=== PATIENT | female | born 1985 | race Hispanic/Latino ===

== ENCOUNTER 2019-04-06 09:25 | Emergency (ER) | payer SELFPAY ==
[2019-04-06 10:11] LABS: Absolute Lymphocytes (CBC) 1.7 K/uL (0.7-4.9); Basophils % 0.2 % (0-1.3); Eosinophils % 5.1 % (0-4.4); Hematocrit 31.9 % (36.0-45.0); MPV 6.7 fL (7.6-11.3); Monocytes % 5.4 % (3.3-12.3); RBC Red Blood Cell Count 3.74 M/uL (3.86-4.86)
[2019-04-06] MEDS ORDERED: MORPHINE 4 MG/ML SYR ONE (10:20)
[2019-04-06 10:48] LABS: ALT/SGPT 63 U/L (12-78); AST/SGOT 33 U/L (15-37); Alkaline Phosphatase 101 U/L (45-117); BUN Blood Urea Nitrogen 10 mg/dL (7-18); Bicarbonate 28 mmol/L (21-32); Bilirubin Direct 0.2 mg/dL (0-0.2); Bilirubin Total 0.7 mg/dL (0.2-1.0); Glucose Level 117 mg/dL (74-106); Lipase 75 U/L (73-393); Potassium 3.8 mmol/L (3.5-5.1); Protein, Total 6.9 g/dL (6.4-8.2); Sodium Level 143 mmol/L (136-145)
[2019-04-06 10:51] LABS: Blood Morphology Comment NOT SEEN (NOT SEEN); Platelet Estimate ADEQ
[2019-04-06 10:51] LABS: Urine Blood NEGATIVE (NEG); Urine Glucose NEGATIVE (NEG); Urine Protein 1+ (NEG); Urine Specific Gravity 1.025 (1.005-1.030); Urine pH 6.5 (5.0-7.0)
--- NOTE | 2019-04-06 12:09 | RAD REPORT ---
EXAM DESCRIPTION: CT - Abdomen Pelvis W Contrast - 04/06/2019 11:59 am CLINICAL HISTORY: Two day history of lower abdominal pain, dark red stool, history of recent liposuc tion procedure performed in [place], patient provided history of gastric ulcer COMPARISON: None. TECHNIQUE: Biphasic, helical CT imaging of the abdomen and pelvis was performed following 100 ml non -ionic IV contrast. Oral contrast was given. All CT scans are performed using dose optimization technique as appropriate and may include automated exposure control or mA/KV adjustment according to patient size. FINDINGS: No suspicious findings in the lung bases. Liver is borderline to mildly fatty infiltrated. No hepatomegaly or focal liver parenchymal process. Spleen and pancreas show no suspicious findings. Gallbladder and biliary tree are also without suspic ious finding. Symmetric renal function is seen with no hydronephrosis or suspicious renal mass. No pyelonephritis o r acute parenchymal process. No bladder abnormalities. No adrenal abnormality seen. Uterus and ovarie s show no suspicious findings. No dilated bowel loops or bowel wall thickening. Appendix is normal. Mild mucosal level inflammatory changes in the colon can be occult on CT imaging. No free air, free fluid or inflammatory stranding i n the peritoneal or retroperitoneal spaces. No hernia, mass or bulky lymphadenopathy. No suspicious bony findings. Patient has prominent edema and stranding changes in the subcutaneous fatty tissues around the lower chest, abdomen and pelvis. Given the liposuction procedure history, these changes are not outside of normal range. Within the subcutaneous fatty tissue there is no air or abscess identifiable. IMPRESSION: Contrast enhanced CT abdomen and pelvis showing no significant or suspicious finding in the peritoneal or retroperitoneal spaces. Significant stranding and edema change in the circumferential fatty tissues around the pelvis, abdome n and lower chest. Given the patient provided history of recent liposuction procedure, these changes would not be unexpe cted. There is no air, abscess or other finding to suspect infectious process in the fatty tissues.
--- NOTE | 2019-04-06 12:57 | ER ---
Nurse's Notes [facility] Name: Nazario Allen Age: 34 yrs Sex: Female : 1985 Arrival Date: 04/06/2019 Time: 09:26 Bed 4 Private MD: Unknown, Unknown Diagnosis: Lower abdominal pain, unspecified;Hematochezia Presentation: 04/06 09:36 Presenting complaint: Patient states: lower abdominal pain X 2 days, worse this iw morning, also having dark red blood in stool today, denies vomiting blood, had recent liposuction 2 weeks ago in [place], was told she has a gastric ulcer. Transition of care: patient was not received from another setting of care. Onset of symptoms was April 06, 2019. Risk Assessment: Do you want to hurt yourself or someone else? Patient reports no desire to harm self or others. Initial Sepsis Screen: Does the patient meet any 2 criteria? No. Patient's initial sepsis screen is negative. Does the patient have a suspected source of infection? No. Patient's initial sepsis screen is negative. Care prior to arrival: None. 09:36 Method Of Arrival: Ambulatory iw 09:36 Acuity: MARYBETH 3 iw Triage Assessment: 09:40 General: Appears in no apparent distress. comfortable, Behavior is cooperative, bp appropriate for age, anxious. Pain: Complains of pain in abdomen. EENT: No deficits noted. Neuro: Level of Consciousness is awake, alert, obeys commands, Oriented to person, place, time, situation, Appropriate for age. Cardiovascular: No deficits noted. Respiratory: No deficits noted. GI: Abdomen is non-distended. : No signs and/or symptoms were reported regarding the genitourinary system. Derm: No deficits noted. Musculoskeletal: No deficits noted. 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 - Social history:: Smoking status: Patient/guardian denies using tobacco. - Family history:: not pertinent. - Ebola Screening: : Patient negative for fever greater than or equal to 101.5 degrees Fahrenheit, and additional compatible Ebola Virus Disease symptoms Patient denies exposure to infectious person Patient denies travel to an Ebola-affected area in the 21 days before illness onset No symptoms or risks identified at this time. - Hospitalizations: : No recent hospitalization is reported. Screenin:38 Abuse screen: Denies threats or abuse. Denies injuries from another. Nutritional bp screening: No deficits noted. Tuberculosis screening: No symptoms or risk factors identified. Fall Risk None identified. Assessment: 09:38 General: SEE TRIAGE NOTE. bp 11:00 Reassessment: ALL CURRENT ORDERS COMPLETED, CT PENDING. bp 13:00 Reassessment: D/C ON HOLD FOR IVF. bp 14:54 Reassessment: IVF COMPLETED. PT D/C HOME AMBULATORY WITH FAMILY, DX WITH UNSPECIFIED bp LOWER ABDOMINAL PAIN. Vital Signs: 09:39 BP 133 / 82; Pulse 85; Resp 16; Temp 98.0; Pulse Ox 99% on R/A; Weight 68.04 kg; Height iw 5 ft. 1 in. (154.94 cm); Pain 10/10; 11:00 BP 121 / 81; Pulse 85; Resp 20; Pulse Ox 100% ; bp 12:00 BP 124 / 83; Pulse 72; Resp 23; Pulse Ox 98% ; bp 13:00 BP 72 / 56; Pulse 75; Resp 11; Pulse Ox 99% ; bp 14:00 BP 109 / 70; Pulse 71; Resp 22; Pulse Ox 98% ; bp 14:57 BP 116 / 74; Pulse 79; Resp 19; Pulse Ox 100% ; bp 09:39 Body Mass Index 28.34 (68.04 kg, 154.94 cm) ED Course: 09:26 Patient arrived in ED. ag5 09:26 Unknown, Unknown is Private Physician. ag5 09:30 Ian Herman MD is Attending Physician. rn 09:38 Triage completed. iw 09:38 Patient has correct armband on for positive identification. Bed in low position. Call bp light in reach. Side rails up X2. 09:39 Arm band placed on. iw 09:50 Derek Leal, RN is Primary Nurse. bp 10:03 Inserted saline lock: 20 gauge in left antecubital area, using aseptic technique. Blood ag collected. 10:04 Basic Metabolic Panel Sent. ag 10:04 CBC with Diff Sent. ag 10:04 Creatinine for Radiology Sent. ag 10:04 Hepatic Function Sent. ag 10:04 Lipase Sent. ag 12:00 CT Abd/Pelvis - PO and IV Contrast In Process Unspecified. EDMS 12:55 Hardy Sethi MD is Referral Physician. rn 14:53 No provider procedures requiring assistance completed. IV discontinued, intact, bp bleeding controlled, No redness/swelling at site. Pressure dressing applied. Administered Medications: 10:00 Drug: morphine 4 mg Route: IVP; Site: left antecubital; bp 10:45 Follow up: Response: Pain is decreased bp 13:33 Drug: NS 0.9% 1000 ml Route: IV; Rate: 1000 ml; Site: left antecubital; bp 14:53 Follow up: IV Status: Completed infusion; IV Intake: 1000ml bp Intake: 14:53 IV: 1000ml; Total: 1000ml. bp Outcome: 12:55 Discharge ordered by MD. rn 14:53 Discharged to home ambulatory, with family. bp 14:53 Condition: stable 14:53 Discharge instructions given to patient, Instructed on discharge instructions, follow up and referral plans. medication usage, Demonstrated understanding of instructions, follow-up care, medications, Prescriptions given X 3. 15:03 Patient left the ED. iw Signatures: Dispatcher [employer] EDMS Sunita Rodriguez, Ian Duran RN, MD MD rn Gallardo, Ana ag Peltier, Brian, RN RN bp Gaskin, Ajare ag5
--- NOTE | 2019-04-06 12:58 | EDPHYS ---
Physician Documentation [facility] Name: Nazario Allen Age: 34 yrs Sex: Female : 1985 Arrival Date: 04/06/2019 Time: 09:26 Bed 4 Private MD: Unknown, Unknown ED Physician Ian Herman HPI: 04/06 09:38 This 34 yrs old Female presents to ER via Unassigned with complaints of Bloody rn Stools, Abdominal Pain. 09:38 The patient presents with abdominal pain in the lower abdomen. Onset: The rn symptoms/episode began/occurred 3 day(s) ago. The symptoms do not radiate. Associated signs and symptoms: Pertinent positives: blood in stools, Pertinent negatives: fever, shortness of breath, vaginal discharge. The symptoms are described as sharp. Modifying factors: The symptoms are alleviated by nothing, the symptoms are aggravated by movement, touching the area. Severity of pain: At its worst the pain was moderate in the emergency department the pain is unchanged. The patient has not experienced similar symptoms in the past. Reports 3 days of lower abd pain, assoc with blood in stools, maroon, no nausea/vomiting, no fever, 2 weeks s/p liposuction in [place], + hx of stomach ulcers.. 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 - Social history:: Smoking status: Patient/guardian denies using tobacco. - Family history:: not pertinent. - Ebola Screening: : Patient negative for fever greater than or equal to 101.5 degrees Fahrenheit, and additional compatible Ebola Virus Disease symptoms Patient denies exposure to infectious person Patient denies travel to an Ebola-affected area in the 21 days before illness onset No symptoms or risks identified at this time. - Hospitalizations: : No recent hospitalization is reported. ROS: 09:38 Constitutional: Negative for fever, chills, and weight loss, Eyes: Negative for injury, rn pain, redness, and discharge, Neck: Negative for injury, pain, and swelling, Cardiovascular: Negative for chest pain, palpitations, and edema, Respiratory: Negative for shortness of breath, cough, wheezing, and pleuritic chest pain, Abdomen/GI: + abd pain and blood in stool MS/Extremity: Negative for injury and deformity, Skin: + bruising to abdomen and extremities. Neuro: Negative for headache, weakness, numbness, tingling, and seizure. Exam: 09:38 Constitutional: This is a well developed, well nourished patient who is awake, alert, rn + appears in pain Head/Face: Normocephalic, atraumatic. ENT: MMM Cardiovascular: Regular rate and rhythm, no murmur Respiratory: Lungs have equal breath sounds bilaterally, clear to auscultation. No increased work of breathing, no retractions or nasal flaring. Abdomen/GI: soft + tenderness lower abdomen with mild swelling, no masses Skin: Warm, dry, ecchymosis to all 4 extremities at site of liposuction as well as abdomen. MS/ Extremity: Pulses equal, no cyanosis. Neurovascular intact. Full, normal range of motion. Equal circumference. Neuro: Awake and alert, GCS 15 Vital Signs: 09:39 BP 133 / 82; Pulse 85; Resp 16; Temp 98.0; Pulse Ox 99% on R/A; Weight 68.04 kg; Height iw 5 ft. 1 in. (154.94 cm); Pain 10/10; 11:00 BP 121 / 81; Pulse 85; Resp 20; Pulse Ox 100% ; bp 12:00 BP 124 / 83; Pulse 72; Resp 23; Pulse Ox 98% ; bp 13:00 BP 72 / 56; Pulse 75; Resp 11; Pulse Ox 99% ; bp 14:00 BP 109 / 70; Pulse 71; Resp 22; Pulse Ox 98% ; bp 14:57 BP 116 / 74; Pulse 79; Resp 19; Pulse Ox 100% ; bp 09:39 Body Mass Index 28.34 (68.04 kg, 154.94 cm) iw MDM: 09:30 Patient medically screened. rn 12:52 Differential diagnosis: bowel obstruction, diverticulitis, non-specific abd pain, rn constipation, internal hemorrhoid, medication reaction, surgical complication. Data reviewed: vital signs, nurses notes, lab test result(s), radiologic studies, CT scan, and as a result, I will discharge patient. Counseling: I had a detailed discussion with the patient and/or guardian regarding: the historical points, exam findings, and any diagnostic results supporting the discharge/admit diagnosis, lab results, radiology results, the need for outpatient follow up, to return to the emergency department if symptoms worsen or persist or if there are any questions or concerns that arise at home. Response to treatment: the patient's symptoms have markedly improved after treatment, and as a result, I will discharge patient. Special discussion: I discussed with the patient/guardian in detail that at this point there is no indication for admission to the hospital. It is understood, however, that if the symptoms persist or worsen the patient needs to return immediately for re-evaluation. ED course: SPoke at length with patient, no acute findings on CT just post surgical inflammation, no further bleeding episodes here, has hx of ulcers but bleeding maroon, hemoglobin 10.8, normalization of vitals, pain free, no indication for emergent colonoscopy at this point, return precautions given and understood. Patient more concerned about pain than bleeding. . 04/06 09:35 Order name: Basic Metabolic Panel; Complete Time: 10:54 rn 04/06 09:35 Order name: CBC with Diff; Complete Time: 10:54 rn 04/06 09:35 Order name: Creatinine for Radiology; Complete Time: 10:54 rn 04/06 09:35 Order name: Hepatic Function; Complete Time: 10:54 rn 04/06 09:35 Order name: Lipase; Complete Time: 10:54 rn 04/06 10:27 Order name: Urine Dipstick--Ancillary (enter results); Complete Time: 10:54 em1 04/06 09:35 Order name: IV Saline Lock; Complete Time: 09:55 rn 04/06 09:35 Order name: Labs collected and sent; Complete Time: 09:55 rn 04/06 09:35 Order name: CT Abd/Pelvis - PO and IV Contrast; Complete Time: 12:11 rn 04/06 10:27 Order name: Urine --Ancillary (enter results); Complete Time: 10:54 em1 04/06 10:50 Order name: Manual Differential; Complete Time: 10:54 EDMS Administered Medications: 10:00 Drug: morphine 4 mg Route: IVP; Site: left antecubital; bp 10:45 Follow up: Response: Pain is decreased bp 13:33 Drug: NS 0.9% 1000 ml Route: IV; Rate: 1000 ml; Site: left antecubital; bp 14:53 Follow up: IV Status: Completed infusion; IV Intake: 1000ml bp Disposition: 04/06/19 12:55 Discharged to Home. Impression: Lower abdominal pain, unspecified, Hematochezia. - Condition is Stable. - Discharge Instructions: Abdominal Pain, Adult, Pain Without a Known Cause, Rectal Bleeding. - Prescriptions for Bentyl 20 mg Oral Tablet - take 1 tablet by ORAL route every 6 hours As needed; 20 tablet. Tylenol- Codeine #3 300-30 mg Oral Tablet - take 1 tablet by ORAL route every 6 hours As needed; 15 tablet. Zantac 300 mg Oral Tablet - take 1 tablet by ORAL route At bedtime; 30 tablet. - Medication Reconciliation Form, Thank You Letter, Antibiotic Education, Prescription Opioid Use form. - Follow up: Hardy Sethi MD; When: 2 - 3 days; Reason: Recheck today's complaints, Re-evaluation by your physician. - Problem is new. - Symptoms have improved. 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 rn 15:03 12:55 04/06/2019 12:55 Discharged to Home. Impression: Lower abdominal pain, iw unspecified; Hematochezia. Condition is Stable. Forms are Medication Reconciliation Form, Thank You Letter, Antibiotic Education, Prescription Opioid Use. Follow up: Hardy Sethi; When: 2 - 3 days; Reason: Recheck today's complaints, Re-evaluation by your physician. Problem is new. Symptoms have improved. rn
[2019-04-06] MEDS ORDERED: NA CHLORIDE 0.9% 1,000 ML ONE (13:46)
== END 2019-04-06 15:03 | disposition home or self-care (01) ==
LOC: ER 09:25
DX: R10.30 Lower abdominal pain, unspecified (principal); K92.1 Melena
CPT/HCPCS: 36415; 74177; 80048; 80076; 81003; 81025; 83690; 85025; 96361; 96374; 99284; J7030; Q9967